=== PATIENT | male | born 1965 | race Caucasian/White ===

== ENCOUNTER 2017-05-11 13:35 | Emergency (ER) | payer OTHER ==
[2017-05-11] MEDS: IBUPROFEN 600 MG TAB PO (17:02)
== END 2017-05-11 21:37 | disposition home or self-care (01) ==
LOC: E/R 13:35 → FTE 21:37
DX: N62 Hypertrophy of breast (principal); J18.1 Lobar pneumonia, unspecified organism; F17.210 Nicotine dependence, cigarettes, uncomplicated
CPT/HCPCS: 71046; 76642; 99284-25